=== PATIENT | male | born 1975 | race Caucasian/White ===

== ENCOUNTER 2017-07-29 11:39 | Inpatient (IN) ==
[2017-07-29] MEDS ORDERED: ASPIRIN 325 MG TABLET PO STA (12:07)
[2017-07-29 12:56] LABS: Calcium 8.5 MG/DL (8.5-10.1); Osmolality,Calculated 287.7 MOS/KG (273-304); Potassium 3.2 MMOL/L (3.5-5.1)
[2017-07-29] MEDS ORDERED: INSULIN REGULAR 100 UNIT/ML SUBCUT STA ×2 (13:39→14:02)
[2017-07-29] MEDS ORDERED: ENOXAPARIN 30 MG/0.3 ML SYRINGE SUBCUT STA (13:40)
[2017-07-29] MEDS ORDERED: ENOXAPARIN 100 MG/ML SYRINGE SUBCUT ONE (13:50)
[2017-07-29] MEDS ORDERED: GLUCAGON 1 MG VIAL IM PRN ×2 (14:59→15:12)
[2017-07-29] MEDS ORDERED: DEXTROSE 50% 25 GM/50 ML VIAL IV PRN ×2 (14:59→15:12)
[2017-07-29] MEDS ORDERED: SODIUM CHLORIDE 0.9% 2,000 ML IV ONE (15:08)
[2017-07-29] MEDS ORDERED: ACETAMINOPHEN 325 MG TABLET PO PRN (15:08)
[2017-07-29] MEDS ORDERED: ONDANSETRON 4 MG/2 ML VIAL IV PRN (15:08)
[2017-07-29] MEDS ORDERED: POTASSIUM CHLORIDE 20 MEQ TABLET PO ONE (15:08)
[2017-07-29] MEDS ORDERED: IBUPROFEN 400 MG TABLET PO PRN (16:58)
[2017-07-29] MEDS ORDERED: MAGNESIUM SULF RIDER 2 GM in PREMIX 1 EACH IV PRN (17:07)
[2017-07-29] MEDS ORDERED: PANTOPRAZOLE 40 MG TABLET PO ONE (17:49)
[2017-07-29] MEDS: SODIUM CHLORIDE 0.9% 1,000 ML IV SCH (18:19)
[2017-07-29] MEDS: INSULIN LISPRO 100 UNIT/ML SUBCUT SCH ×2 (18:19→22:02)
[2017-07-29] MEDS: PANTOPRAZOLE 40 MG TABLET PO SCH (18:19)
[2017-07-29] MEDS: INSULIN GLARGINE 100 UNIT/ML SUBCUT SCH (18:20)
[2017-07-29] MEDS: NICOTINE 21 MG/24 HR PATCH TRANSDERM SCH (18:20)
[2017-07-29 20:12] LABS: Barbiturates Screen,Urine Negative (Negative); Benzodiazepines Screen,Urine Negative (Negative); Cannabinoid Screen,Urine Negative (Negative); Opiate Screen,Urine Negative (Negative); Phencyclidine Screen,Urine Negative (Negative)
[2017-07-29] MEDS: ATENOLOL 50 MG TABLET PO SCH (20:33)
[2017-07-29] MEDS: ROSUVASTATIN 20 MG TABLET PO SCH (21:25)
[2017-07-30] MEDS ORDERED: ENOXAPARIN 100 MG/ML SYRINGE SUBCUT SCH (01:00)
[2017-07-30 04:26] LABS: Basophils # 0.1 10*3/uL (0.0-0.2); Basophils % 0.4 % (0.0-0.8); Eosinophils # 0.1 10*3/uL (0.0-0.87); Eosinophils % 0.7 % (0.00-10.9); Immature Granulocytes % 0.3 %; Immature Granulocytes Absolute 0.04 #; Lymphocytes # 4.1 10*3/uL (1.4-4.0); Lymphocytes % 33.1 % (21.2-54.2); Mean Corpuscular HGB Conc 34.1 GM/DL (32-36); Mean Corpuscular Hemoglobin 30 PG (27-34); Mean Corpuscular Volume 89.1 FL (87-102); Mean Platelet Volume 10.6 FL (9.6-12.0); Monocytes # 0.7 10*3/uL (0.11-0.8); Monocytes % 5.8 % (1.7-12.7); Neutrophils # 7.4 10*3/uL (1.4-7.4); Neutrophils % 59.7 % (38.7-73.9); Platelet Count 267 T/CUMM (130-400); Red Cell Distribution Width 12.1 % (9.3-17.3); White Blood Count 12.5 T/CUMM (4-12)
[2017-07-30 05:51] LABS: Calcium 8.6 MG/DL (8.5-10.1); Osmolality,Calculated 282.8 MOS/KG (273-304); Risk Ratio 6.46; VLDL CHOLESTEROL 71.8 MG/DL
[2017-07-30] MEDS ORDERED: diphenhydrAMINE CAP 25 MG CAPSULE PO ONE (06:30)
[2017-07-30] MEDS: POTASSIUM CHLORIDE RIDER 10 MEQ in PREMIX 1 EACH IV PRN ×2 (06:32→09:03)
[2017-07-30] MEDS: SODIUM CHLORIDE 0.9% 1,000 ML IV SCH ×4 (06:39→19:30)
[2017-07-30] MEDS ORDERED: ASPIRIN 325 MG TABLET PO ONE (08:56)
[2017-07-30] MEDS ORDERED: diphenhydrAMINE CAP 50 MG CAPSULE PO ONE (09:00)
[2017-07-30] MEDS ORDERED: ASPIRIN EC 81 MG TABLET PO SCH (09:00)
[2017-07-30] MEDS ORDERED: DIAZEPAM 5 MG TABLET PO ONE (09:00)
[2017-07-30] MEDS ORDERED: CHLORTHALIDONE 25 MG TABLET PO SCH (09:00)
[2017-07-30] MEDS: NICOTINE 21 MG/24 HR PATCH TRANSDERM SCH (09:06)
[2017-07-30] MEDS: ATENOLOL 50 MG TABLET PO SCH ×2 (09:08→21:21)
[2017-07-30] MEDS: ISOSORBIDE MONONITRATE 30 MG TABLET PO SCH (09:08)
[2017-07-30] MEDS: DIAZEPAM 5 MG TABLET PO ONE ×2 (09:08→09:12)
[2017-07-30] MEDS: amLODIPine 10 MG TABLET PO SCH (09:13)
[2017-07-30] MEDS: PANTOPRAZOLE 40 MG TABLET PO SCH (09:13)
[2017-07-30] MEDS: AZITHROMYCIN 250 MG TABLET PO SCH (09:13)
[2017-07-30] MEDS: INSULIN LISPRO 100 UNIT/ML SUBCUT SCH ×4 (09:21→21:26)
[2017-07-30] MEDS ORDERED: HEPARIN/NACL 0.9% 2 UNITS/ML 1,000 ML IV ONE (10:17)
[2017-07-30] MEDS ORDERED: LIDOCAINE 1% 20 ML VIAL ONE (10:25)
[2017-07-30] MEDS ORDERED: fentaNYL 100 MCG/2 ML VIAL ONE (10:26)
[2017-07-30] MEDS ORDERED: MIDAZOLAM 2 MG/2 ML VIAL ONE (10:26)
[2017-07-30] MEDS ORDERED: BIVALIRUDIN 250 MG VIAL IV ONE (10:57)
[2017-07-30] MEDS ORDERED: TICAGRELOR 90 MG TABLET ONE (11:30)
[2017-07-30] MEDS ORDERED: DEXTROSE 50% 25 GM/50 ML VIAL IV PRN (11:38)
[2017-07-30] MEDS ORDERED: GLUCAGON 1 MG VIAL IM PRN (11:38)
[2017-07-30] MEDS: INSULIN GLARGINE 100 UNIT/ML SUBCUT SCH (12:48)
[2017-07-30] MEDS ORDERED: INSULIN GLARGINE 100 UNIT/ML SUBCUT SCH (14:18)
[2017-07-30] MEDS: TICAGRELOR 90 MG TABLET PO SCH (21:23)
[2017-07-30] MEDS: ROSUVASTATIN 20 MG TABLET PO SCH (21:23)
[2017-07-31] MEDS: SODIUM CHLORIDE 0.9% 1,000 ML IV SCH ×2 (00:22→03:34)
[2017-07-31 05:20] LABS: Basophils # 0.1 10*3/uL (0.0-0.2); Basophils % 0.6 % (0.0-0.8); Eosinophils # 0.1 10*3/uL (0.0-0.87); Eosinophils % 1.5 % (0.00-10.9); Hematocrit 40.8 VOL% (42.0-52.0); Immature Granulocytes % 0.6 %; Immature Granulocytes Absolute 0.05 #; Lymphocytes # 2.7 10*3/uL (1.4-4.0); Lymphocytes % 32.9 % (21.2-54.2); Mean Corpuscular HGB Conc 34.3 GM/DL (32-36); Mean Corpuscular Hemoglobin 30 PG (27-34); Mean Corpuscular Volume 88.1 FL (87-102); Mean Platelet Volume 10.3 FL (9.6-12.0); Monocytes # 0.6 10*3/uL (0.11-0.8); Monocytes % 7.5 % (1.7-12.7); Neutrophils # 4.7 10*3/uL (1.4-7.4); Neutrophils % 56.9 % (38.7-73.9); Platelet Count 224 T/CUMM (130-400); Red Blood Count 4.63 MC/CUMM (3.8-5.5); Red Cell Distribution Width 12.1 % (9.3-17.3); White Blood Count 8.2 T/CUMM (4-12)
[2017-07-31 05:48] LABS: Calcium 8.4 MG/DL (8.5-10.1); Osmolality,Calculated 283.7 MOS/KG (273-304); Potassium 3.1 MMOL/L (3.5-5.1)
[2017-07-31 05:50] LABS: CKMB % 6.2 %
[2017-07-31] MEDS ORDERED: POTASSIUM CHLORIDE 20 MEQ TABLET PO PRN (05:59)
[2017-07-31] MEDS: INSULIN LISPRO 100 UNIT/ML SUBCUT SCH (08:39)
[2017-07-31] MEDS ORDERED: POTASSIUM CHLORIDE 20 MEQ TABLET PO ONE (08:59)
[2017-07-31] MEDS ORDERED: ASPIRIN EC 81 MG TABLET PO SCH (09:00)
[2017-07-31] MEDS: amLODIPine 10 MG TABLET PO SCH (09:11)
[2017-07-31] MEDS: AZITHROMYCIN 250 MG TABLET PO SCH (09:11)
[2017-07-31] MEDS: PANTOPRAZOLE 40 MG TABLET PO SCH (09:11)
[2017-07-31] MEDS: ATENOLOL 50 MG TABLET PO SCH (09:12)
[2017-07-31] MEDS: ISOSORBIDE MONONITRATE 30 MG TABLET PO SCH (09:12)
[2017-07-31] MEDS: NICOTINE 21 MG/24 HR PATCH TRANSDERM SCH (09:12)
[2017-07-31] MEDS: TICAGRELOR 90 MG TABLET PO SCH (09:12)
[2017-07-31 11:49] VITALS: BP 144/85
== END 2017-07-31 13:45 | disposition home or self-care (01) | DRG 247 ==
LOC: N.ED 11:39 → N.EDINP 11:39 → N.2W 14:29 → N.TELES 16:00 → SUATTDRO 07-30 10:39
PROVIDERS: ADMIT Internal Medicine; ATTEND Internal Medicine
PROC: CLCCHCL (ICD-10-PCS; 2017-07-30 10:15)